=== PATIENT | female | born 2000 | race Caucasian/White ===

== ENCOUNTER 2023-05-31 02:47 | Emergency (ER) | payer OTHER ==
[~2023-05-31] VITALS: Ht 154.9 cm; Wt 49.9 kg
[2023-05-31 02:54] VITALS: BP 107/57; PULSE 86; RESP 16; TEMP 97.2; O2SAT 95
--- NOTE | 2023-05-31 02:58 | NUR ---
PT ALS TO BED 5
[2023-05-31] MEDS ORDERED: ONDANSETRON 4 MG ODT PO ONE (03:15)
[2023-05-31] MEDS ORDERED: NACL 0.9% 1,000 ML IV ONE (03:40)
--- NOTE | 2023-05-31 03:40 | NUR ---
ERMD at bedside.
[2023-05-31] MEDS ORDERED: NALOXONE 0.4 MG/ML VIAL IVP ONE (03:50)
--- NOTE | 2023-05-31 04:15 | NUR ---
X-ray at bedside.
--- NOTE | 2023-05-31 04:41 | NUR ---
URINE TO LAB
[2023-05-31 04:47] VITALS: TEMP 97.2
[2023-05-31 04:50] LABS: BARBITURATE, URINE NEGATIVE ng/ml (NEG <=200)
[2023-05-31 04:51] LABS: BENZODIAZEPINE, URINE NEGATIVE ng/mL (NEG <=200); CANNABINOID, URINE POSITIVE ng/mL (NEG <=50); COCAINE, URINE NEGATIVE ng/mL (NEG <=300); OPIATE, URINE NEGATIVE ng/mL (NEG <=2000); PHENCYCLIDINE SCREEN,URINE NEGATIVE ng/mL (NEG <=25)
--- NOTE | 2023-05-31 04:53 | NUR ---
Patient is a 23/F who came in due to ingestion of large amounts of alcohol (3 glasses of mixed drinks and 3 shots of unknown alcohol) around 0215. Patient's boyfriend noted her to be unpresponsive and performed CPR on her. Patient awoke, became responsive and vomited. Pateint denies drug use. PMHx: Denies NKA
--- NOTE | 2023-05-31 05:18 | NUR ---
Patient awake and comfortable in bed with no complaints of pain or signs of acute distress at this time. Side rails up and call light within reach.
--- NOTE | 2023-05-31 06:45 | NUR ---
Patient discharged with v/s stable. Written and verbal after care instructions given and explained. Patient verbalized understanding. Ambulatory with steady gait, accompanied by family members. All questions addressed prior to discharge. Advised to follow up with PMD.
[2023-05-31 06:49] VITALS: BP 121/49; PULSE 87; RESP 15; O2SAT 99
== END 2023-05-31 06:45 | disposition home or self-care (01) ==
LOC: MED 02:47
DX: F10.129 Alcohol abuse with intoxication, unspecified (principal); F12.90 Cannabis use, unspecified, uncomplicated; Y90.9 Presence of alcohol in blood, level not specified
CPT/HCPCS: 71045; 80305; 81025; 96360; 99284; Q0092; Q0162; J7030